=== PATIENT | male | born 1970 | race Caucasian/White ===

== ENCOUNTER 2025-06-09 06:15 | Day surgery (SDC) | payer MEDICARE ==
[2025-06-09] MEDS ORDERED: MARCAINE 0.25% PF/ EPI 1:200,000 ONE (06:24)
[2025-06-09] MEDS ORDERED: NEURONTIN ONE (06:25)
[2025-06-09] MEDS ORDERED: celeBREX 100 MG ONE (06:25)
[2025-06-09] MEDS ORDERED: TYLENOL EXTRA STRENGTH 500 MG ONE (06:25)
[2025-06-09] MEDS: NEURONTIN PO ONE (06:26)
[2025-06-09] MEDS ORDERED: Lactated Ringers 1,000 ML IV ONE (06:26)
[2025-06-09] MEDS: Lactated Ringers 1,000 ML IV SCH (06:26)
[2025-06-09] MEDS: celeBREX 100 MG PO ONE (06:26)
[2025-06-09] MEDS: TYLENOL EXTRA STRENGTH 500 MG PO ONE (06:27)
[2025-06-09 06:44] VITALS: RESP 18
[2025-06-09] MEDS ORDERED: Versed 2 MG/2 ML Injection ONE (07:48)
[2025-06-09] MEDS ORDERED: propofoL IV ONE (07:48)
[2025-06-09] MEDS ORDERED: SUBLIMAZE 100 MCG/2 ML ONE ×2 (07:48→09:26)
[2025-06-09] MEDS ORDERED: KEFZOL 1 GM ONE (08:13)
[2025-06-09] MEDS ORDERED: Xylocaine-Mpf 2% 5 Ml Vial ONE (08:13)
[2025-06-09] MEDS ORDERED: PHENYLEPHRINE HCL ONE (08:17)
[2025-06-09 10:05] VITALS: BP 121/51; PULSE 82; TEMP 97; O2SAT 97
--- NOTE | 2025-06-10 10:36 | OP ---
SURGERY DATE/TIME: 06/09/2025 [id number] PREOPERATIVE DIAGNOSIS: Left knee medial and lateral meniscus tears. POSTOPERATIVE DIAGNOSIS: Left knee medial and lateral meniscus tears. PROCEDURE: Left knee arthroscopy with partial medial and lateral meniscectomy. SURGEON: Carlos Dailey MD SALES RECEPTIONIST: None. ANESTHESIA: General. COMPLICATIONS: None. ESTIMATED BLOOD LOSS: Minimal. INDICATIONS: The patient is a 55-year-old male who presented with an approximately 2-year history of left knee pain with associated popping at times. His pain was medial and lateral in location. He had undergone ACL reconstruction 3 to 4 years ago. An MRI was obtained, which revealed evidence of medial and lateral meniscus tears, with ACL reconstruction intact. There was also evidence of chondromalacia. We discussed options, and he wanted to proceed with left knee arthroscopy with a partial medial and lateral meniscectomy and procedures as indicated. I explained risks associated with the procedure including, but not limited to, infection, pain, bleeding, damage to surrounding structures, stiffness, limp, failure to improve pain, and need for further procedures. After explaining all risks, benefits, and alternative treatment options, he desired to proceed with surgery. DESCRIPTION OF PROCEDURE AND FINDINGS: The patient was taken to the operating room and placed in the supine position. IV antibiotics were administered and general anesthesia was administered as well. A tourniquet was applied to the left upper thigh. The left lower extremity was then prepped and draped in the standard sterile fashion. An anterolateral portal was then created through the previous portal incision scar. An anteromedial portal was created as well. Examination of the patellofemoral joint revealed grade 3/4 chondromalacia throughout. Examination of the medial compartment revealed mild chondromalacia. There was an area of complex tearing involving the peripheral edge of the medial meniscus near the posterior horn. A mechanical shaver was then used to perform medial meniscectomy on this area. Following debridement, the meniscus was smoothly contoured and stable. Examination of the notch revealed intact ACL graft. Examination of the lateral compartment revealed grade 2/3 chondromalacia involving the lateral tibial plateau. There was horizontal complex tearing involving the body of the lateral meniscus. The mechanical shaver was used to perform partial medial meniscectomy. Following debridement, the meniscus was smoothly contoured and stable to probing. The irrigant fluid was then drained and the portals were closed with 3-0 nylon sutures. The knee joint was then injected with 0.25% Marcaine with epinephrine. A sterile dressing was then applied and the tourniquet was released. The patient was then awakened from anesthesia and taken to recovery room in stable condition.
== END 2025-06-09 10:23 | disposition home or self-care (01) ==
LOC: SDC 06:15
PROVIDERS: ATTEND Orthopaedic Surgery
DX: S83.242D Other tear of medial meniscus, current injury, left knee, subsequent encounter (principal); S83.282D Other tear of lateral meniscus, current injury, left knee, subsequent encounter